=== PATIENT | male | born 1940 | race Caucasian/White ===

== ENCOUNTER 2018-09-25 02:22 | Outpatient (CLI) | payer MEDICARE, BC | END 2018-09-25 23:59 | disposition home or self-care (01) | LOC: DIABETIC 02:22 | PROVIDERS: ATTEND Specialist | DX: E11.9 Type 2 diabetes mellitus without complications (principal); Z79.4 Long term (current) use of insulin; Z79.84 Long term (current) use of oral hypoglycemic drugs | CPT/HCPCS: G0108 ==

== ENCOUNTER 2018-12-24 02:48 | Outpatient (CLI) | payer MEDICARE, BC | END 2018-12-24 23:59 | disposition home or self-care (01) | LOC: DIABETIC 02:48 | PROVIDERS: ATTEND Specialist | DX: E11.65 Type 2 diabetes mellitus with hyperglycemia (principal); Z79.4 Long term (current) use of insulin; Z79.84 Long term (current) use of oral hypoglycemic drugs | CPT/HCPCS: G0108 ==

== ENCOUNTER 2019-02-06 06:30 | Day surgery (SDC) | payer MEDICARE, BC ==
[~2019-02-06] VITALS: Ht 177.8 cm; Wt 86.8 kg
[2019-02-06] VITALS (9 sets, daily range): BP systolic 122–147; BP diastolic 72–83
[2019-02-06] MEDS ORDERED: normal saline 1000ml 1,000 ML IV PRN (06:50)
[2019-02-06] MEDS ORDERED: ceFAZolin 2gm in dextrose, iso 100 ML IV ONE (06:50)
[2019-02-06 07:19] LABS: EOSINOPHILS # (AUTO) 0.1 X10'3 (0-0.9); EOSINOPHILS % (AUTO) 3.5 % (0-6); HEMATOCRIT 35.5 % (42.0-52.0); HEMOGLOBIN 12.2 g/dl (14.0-17.9); LYMPHOCYTES # (AUTO) 1.5 X10'3 (1.1-4.8); LYMPHOCYTES % (AUTO) 37.1 % (21-51); MEAN CORPUSCULAR HEMOGLOBIN 30.2 PG (27.0-31.0); MEAN CORPUSCULAR HGB CONC 34.4 g/dL (33.0-36.5); MEAN CORPUSCULAR VOLUME 87.9 FL (78-98); MEAN PLATELET VOLUME 7.7 FL (7.4-10.4); MONOCYTES # (AUTO) 0.5 X10'3 (0-0.9); MONOCYTES % (AUTO) 12.8 % (2-12); NEUTROPHILS # (AUTO) 1.9 X10'3 (1.8-7.7); NEUTROPHILS % (AUTO) 45.6 % (42-75); PLATELET COUNT 145 X10'3 (140-440); RED BLOOD COUNT 4.04 X10'6 (4.70-6.10); RED CELL DISTRIBUTION WIDTH 14.6 % (11.5-14.5); WHITE BLOOD COUNT 4.1 X10'3 (4.5-11.0)
[2019-02-06] MEDS ORDERED: ATOR40TA PO (07:19)
[2019-02-06] MEDS ORDERED: CLOP75TA15 PO (07:20)
[2019-02-06] MEDS ORDERED: ESCI10TA54 PO (07:20)
[2019-02-06] MEDS ORDERED: ESOM40CA54 PO (07:21)
[2019-02-06] MEDS ORDERED: INSU100C10 SQ (07:22)
[2019-02-06] MEDS ORDERED: LANTUS SQ (07:23)
[2019-02-06] MEDS ORDERED: LEVE750T6 PO (07:24)
[2019-02-06] MEDS ORDERED: LEVO25TA2 PO (07:25)
[2019-02-06] MEDS ORDERED: PIOG30TA71 PO (07:26)
[2019-02-06] MEDS ORDERED: METF500T PO (07:27)
[2019-02-06] MEDS ORDERED: HYDR-4353 PO (07:28)
[2019-02-06 07:31] LABS: INR 1.1 INR
[2019-02-06 07:33] LABS: ALBUMIN 3.5 G/DL (3.4-5.0); ANION GAP 7 (8-16); BLOOD UREA NITROGEN 19 MG/DL (7-18); BUN/CREATININE RATIO 16.2 (5.4-32.0); CALCIUM 8.9 MG/DL (8.5-10.1); CHLORIDE 104 MMOL/L (99-107); CREATININE 1.17 MG/DL (0.60-1.10); GLUCOSE 129 MG/DL (70-104); SODIUM 140 MMOL/L (135-145); TOTAL CARBON DIOXIDE 29.3 MMOL/L (24-32); eGFR 61 ML/MIN
[2019-02-06] MEDS ORDERED: normal saline 1000ml 1,000 ML IV SCH ×2 (08:19→09:52)
[2019-02-06] MEDS ORDERED: LIDOcaine 1%/PF 5ML 10 MG/ML VIAL SQ ONE (08:20)
[2019-02-06] MEDS ORDERED: diphenhydrAMINE 50 mg/ml inj IV ONE (08:20)
[2019-02-06] MEDS ORDERED: fentaNYL/PF 50MCG/1 ML 2ML syringe IV PRN (08:20)
[2019-02-06] MEDS ORDERED: midazolam 2 mg/2 ml injection IV PRN (08:20)
[2019-02-06] MEDS ORDERED: fentaNYL/PF 50MCG/1 ML 2ML syringe ONE ×2 (08:24→08:53)
[2019-02-06] MEDS ORDERED: diphenhydrAMINE 50 mg/ml inj ONE (08:24)
[2019-02-06] MEDS ORDERED: midazolam 2 mg/2 ml injection ONE ×2 (08:24→08:53)
[2019-02-06] MEDS ORDERED: LIDOcaine 1%/PF 5ML 10 MG/ML VIAL ONE (08:24)
[2019-02-06] MEDS ORDERED: iohexol 300 MG/1 ML 50ml polymer ONE (08:25)
[2019-02-06] MEDS ORDERED: HYDROcodone/acetaminophen 5mg/325mg tablet PO PRN (09:55)
== END 2019-02-06 13:20 | disposition home or self-care (01) ==
LOC: SSTAY O 06:30
PROVIDERS: ATTEND Radiology Diagnostic Radiology
DX: M48.56XA Collapsed vertebra, not elsewhere classified, lumbar region, initial encounter for fracture (principal); G89.29 Other chronic pain; M54.5 Low back pain; Z01.812 Encounter for preprocedural laboratory examination
CPT/HCPCS: 22514; 36415; 80048; 85025; 85610; 99152; 99153; C1713; J0690; J1200; J2001; J2250; J3010; J7030; Q9967; 88173; 88305; 88342